=== PATIENT | female | born 1965 | race Caucasian/White ===

== ENCOUNTER 2024-05-22 06:39 | Day surgery (SDC) | payer OTHER ==
[~2024-05-22] VITALS: Ht 167.6 cm; Wt 113.4 kg
[~2024-05-22 06:39] MED LIST: ARIPIPRAZOLE5 MG PO; CELECOXIB200 MG PO; CLONAZEPAM0.5 M1 PO; D 10001000 UNIT PO; SUBOXONE; VENLAFAXINE37.5 M1 PO
[2024-05-22] MEDS ORDERED: FAMOTIDINE 10MG/ML 2ML SDV IV ONE (06:41)
[2024-05-22] MEDS ORDERED: LACTATED RINGER'S 1,000 ML IV ONE (06:41)
[2024-05-22] MEDS ORDERED: STERILE WATER FOR IRRIGATION 1,000 ML BTL IR ONE (07:10)
[2024-05-22] MEDS ORDERED: LIDOCAINE HCL 2% 2ML SDV IV ONE (08:04)
[2024-05-22] MEDS ORDERED: GLYCOPYRROLATE 0.2 MG/ML IV ONE (08:04)
[2024-05-22] MEDS ORDERED: PROPOFOL 200 MG/20 ML VIAL IV ONE (08:04)
[2024-05-22 08:18] VITALS: BP 157/91
== END 2024-05-22 08:21 | disposition home or self-care (01) | DRG 951 ==
LOC: ENDO 06:39
PROVIDERS: ATTEND Surgery
PROC: 0DJD8ZZ Inspection of Lower Intestinal Tract, Via Natural or Artificial Opening Endoscopic (ICD-10-PCS; principal; 2024-05-22)
DX: Z12.11 Encounter for screening for malignant neoplasm of colon (principal); K57.30 Diverticulosis of large intestine without perforation or abscess without bleeding; K64.8 Other hemorrhoids; F31.9 Bipolar disorder, unspecified; F41.9 Anxiety disorder, unspecified; Z80.0 Family history of malignant neoplasm of digestive organs
CPT/HCPCS: J1596